=== PATIENT | male | born 1940 | race Caucasian/White ===

== ENCOUNTER 2021-10-12 10:02 | Emergency (ER) | payer MEDICARE, BC ==
[2021-10-12 10:50] VITALS: BP 141/77; PULSE 74
[2021-10-12 10:56] LABS: CHLORIDE,CL 101 mmol/L (98-107); SODIUM,NA 136 mmol/L (136-145)
[2021-10-12 10:58] LABS: ANION GAP 13.1 mmol/L (5-15); ESTIMATED GFR 46 mL/min (>=60)
[2021-10-12 11:22] LABS: CORONAVIRUS COVID-19 NAA POSITIVE (NEGATIVE)
[2021-10-12] MEDS ORDERED: Nirmatrelvir/Ritonavir 300 MG/100 MG Dose Pack PO SCH (11:45)
== END 2021-10-12 12:44 | disposition home or self-care (01) ==
LOC: VM.ED 10:02
DX: U07.1 COVID-19 (principal); Z79.82 Long term (current) use of aspirin
CPT/HCPCS: 0240U; 36415; 70450; 71046; 80053; 82550; 83615; 84484; 85025; 86140; 93005; 93010; 99284; 99285; A9270-GY